=== PATIENT | male | born 1980 ===

== ENCOUNTER 2019-02-16 11:46 | Emergency (ER) | payer SELFPAY ==
[~2019-02-16] VITALS: Ht 168 cm; Wt 93.0 kg
[2019-02-16] MEDS ORDERED: SODIUM BICARB 8.4% 50 MEQ/50 ML VIAL ONE (12:10)
[2019-02-16] MEDS ORDERED: LIDOCAINE 1% INJ 20 ML 20 ML VIAL ONE (12:10)
[2019-02-16] MEDS ORDERED: SODIUM BICARB 8.4% 50 MEQ/50 ML VIAL IR ONE (12:15)
[2019-02-16] MEDS ORDERED: LIDOCAINE 1% INJ 20 ML 20 ML VIAL INJ ONE (12:15)
[2019-02-16] MEDS ORDERED: CEPH-507 PO (12:21)
[2019-02-16] MEDS ORDERED: HYDR-4226 PO (12:21)
--- NOTE | 2019-02-16 12:22 | ED Lower Extremity ---
General Chief Complaint: Lower Extremity Stated Complaint: INGROWN TOE NAIL Nursing Triage Note: pt presents to ed with complaints of r/l big toe pain and swelling x 3 weeks. pt thinks he has ingrown toenails. Nursing Sepsis Screen: No Definite Risk Source: patient Exam Limitations: no limitations History of Present Illness Date Seen by Provider: Feb 16, 2019 Time Seen by Provider: 12:18 Initial Comments To ER with ingrown toenail on the right for about 3 weeks. Onset: just prior to arrival Severity: moderate Pain/Injury Location: right 1st toe Allergies and Home Medications Allergies Coded Allergies: Penicillins (Verified Allergy, Unknown, 02/16/19) Home Medications No Active Prescriptions or Reported Meds Patient Home Medication List Home Medication List Reviewed: Yes Review of Systems Constitutional: see HPI EENTM: see HPI Respiratory: no symptoms reported Cardiovascular: no symptoms reported Genitourinary: no symptoms reported Musculoskeletal: no symptoms reported Skin: no symptoms reported Psychiatric/Neurological: No Symptoms Reported Past Jpllarb-[id number]-[id number] Hx Patient Social History Alcohol Use: Occasionally Uses Recreational Drug Use: No Smoking Status: Never a Smoker Recent Foreign Travel: No Contact w/Someone Who Travel: No Recent Infectious Disease Expo: No Recent Hopitalizations: No Physical Abuse: No Sexual Abuse: No Mistreated: No Fear: No Seasonal Allergies Seasonal Allergies: No Past Medical History Surgeries: No Respiratory: No Cardiac: No Neurological: No Genitourinary: No Gastrointestinal: No Musculoskeletal: No Endocrine: No HEENT: No Cancer: No Psychosocial: No Integumentary: No Blood Disorders: No Physical Exam Vital Signs Vital Signs - First Documented 02/16/19 11:54 Temp 37.2 Pulse 96 Resp 16 B/P (MAP) 153/84 (107) Pulse Ox 98 Capillary Refill : Less Than 3 Seconds Height, Weight, BMI Height: '" Weight: lbs. oz. kg; 32.00 BMI Method: General Appearance: WD/WN, no apparent distress HEENT: PERRL/EOMI, normal ENT inspection Respiratory: no respiratory distress, no accessory muscle use Hips: bilateral hip non-tender, bilateral hip normal inspection, bilateral hip normal range of motion Legs: bilateral leg non-tender, bilateral leg normal inspection, bilateral leg normal range of motion Knees: bilateral knee non-tender, bilateral knee normal inspection, bilateral knee normal range of motion Ankles: bilateral ankle non-tender, bilateral ankle normal inspection, bilateral ankle normal range of motion Feet: right foot other (right great toenail is ingrown both laterally and medially. It's very short, he has a trend to about two thirds of a centimeter in length. There is granulation tissue that is inflamed over the lateral and medial nail fold. We'll remove the toenail) Neurologic/Psychiatric: alert, normal mood/affect, oriented x 3 Skin: normal color, warm/dry Procedures/Interventions Toenail removal: Digital block done using 7 mL of 1% lidocaine without epinephrine buffered with sodium bicarbonate and a 1-10 ratio. Area then cleaned with Betadine swabs which were allowed to dry, toenail was then removed from the lateral and medial nail fold, lifted from the nailbed and then pulled from the proximal nail fold. Areas of bleeding or cauterized with sore nitrate. This was wrapped with Xeroform gauze, then gauze and Coban. Progress/Results/Core Measures Results/Orders My Orders Orders - KETTY LOPEZ APRN Lidocaine 1% Inj 20 Ml (Xylocaine 1% Inj (02/16/19 12:15) Sodium Bicarbonate 8.4% Vial (Sodium Bic (02/16/19 12:15) Vital Signs/I&O 02/16/19 11:54 Temp 37.2 Pulse 96 Resp 16 B/P (MAP) 153/84 (107) Pulse Ox 98 Blood Pressure Mean: 107 Departure Impression Primary Impression: Ingrown toenail of right foot with infection Disposition: 01 HOME, SELF-CARE Condition: Stable Departure-Patient Inst. Decision time for Depature: 12:20 Patient Instructions: Ingrown Toenail Removal Add. Discharge Instructions: 1. You can remove this dressing tomorrow evening, then leave it open to air. You may cover with a simple Band-Aid if she would like. Antibiotics as directed. Return to ER for any concerns. All discharge instructions reviewed with patient and/or family. Voiced understanding. Scripts Hydrocodone/Acetaminophen (Conroy 5-325 Tablet) 1 Each Tablet 1 TAB PO Q6H for Pain MDD 10 TABS for 7 Days, #10 TAB Prov: KETTY LOPEZ APRN 02/16/19 Cephalexin (Keflex) 500 Mg Capsule 500 MG PO TID, #21 CAP Prov: KETTY LOPEZ APRN 02/16/19 KETTY LOPEZ APRN Feb 16, 2019 12:21
[2019-02-16 12:55] VITALS: BP 132/71
== END 2019-02-16 12:55 | disposition home or self-care (01) ==
LOC: ER 11:47
DX: L60.0 Ingrowing nail (principal); L08.9 Local infection of the skin and subcutaneous tissue, unspecified; Z88.0 Allergy status to penicillin
CPT/HCPCS: 11720